=== PATIENT | female | born 1945 | race Caucasian/White ===

== ENCOUNTER → 2018-11-18 07:53 | Outpatient (CLI) | payer OTHER, SELFPAY ==
--- NOTE | 2018-11-18 09:36 | P.PCN_ITS ---
Cardiac Stress Test Report Referral & Results Date Patient Seen: 11/18/18 Requesting provider: Rico Amaya Indication: Dyspnea with exertion Rest ECG: Unremarkable Procedure Note: After both written and verbal informed consent the patient had an IV started by the diagnostic imaging RN and then was hooked up to the treadmill monitoring system. The patient was placed on the treadmill at 1 mile an hour with no elevation and was then injected with the Juliet scan material. The Cardiolite was then immediately administered. The patient spent an additional 2-3 minutes on the treadmill before being returned to the [facility] in the supine position. The patient had a normal response to all infused materials. The patient to become quite dyspneic although oxygen saturation remained normal throughout Impression: Normal response to infuse materials as above. Significant dyspnea with normal oxygen saturation. Please see perfusion imaging report for details regarding possible ischemia Please note: Actual ECG tracings can be found in the PACS system.
--- NOTE | 2018-11-19 15:41 | DI.NM.S_ITS ---
DATE OF SERVICE: 11/18/2018 PROCEDURE: Pharmacological perfusion study. 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 RADIOPHARMACEUTICAL: 26.3 mCi technetium-99m Myoview IV was injected at stress and 24.4 mCi technetium-99m Myoview IV was injected at rest. CARDIAC STRESS: Patient underwent IV Lexiscan perfusion study under the supervision of an attending staff. She walked on low level as well. She developed significant shortness of breath. Her saturation was normal. Baseline EKG reveals to be sinus. During stress, there was significant artifacts. However, no convincing ischemic changes seen. No significant arrhythmias seen. The patient remained hemodynamically stable. RAW DATA: Patient's weight is 228 pounds. Breast shadow was seen. There was increased subdiaphragmatic activity. GATED STUDY: Resting stress LV ejection fraction 81%, and stress LV ejection fraction 84% without any significant wall motion abnormalities. No transient ischemic dilatation. TID ratio is 0.91, which is within normal limits. Resting end-diastolic volume is 117 mL. Lung/heart ratio is 0.30, which is within normal limits. MYOCARDIAL PERFUSION SCAN: Stress supine and resting supine images were compared to each other. Patient doesn't have any prone images. Resting supine images revealed small-sized severely decreased perfusion of basal inferior wall and small-sized mildly decreased perfusion of distal anterior wall and distal anteroseptum. Stress supine images revealed small-sized severely decreased perfusion of basal inferior wall; however, there was moderate sized moderate-to- severely decreased perfusion of [id number] anterior wall involving anterior apex and distal septum as well. CONCLUSION: This is an abnormal myocardial perfusion study consistent with mild distal anterior wall, distal anteroseptal infarction with significant elina- infarct ischemia as well as extension into the anterior apex and mid anterior wall. Patient also has small -sized significant infarction involving the basal inferior wall. The perfusion abnormality and stress left ventricular (LV) ejection fraction appears to be discordant. This LV ejection fraction may not be true. Patient didn't have any prone images. Will inform Dr. Amaya about this abnormal perfusion study. Addendum: Dr. Amaya was informed. LaciViviana - PROGRAM SPECIALIST/lalo/ doc#: [id number]/job#: [id number] dd: 11/19/2018 12:43:00 dt: 11/19/2018 15:07:00 DICTATING MD/COPIES TO: Noelle Guerrier MD COPIES MNE: SOL[place]
== END ==
PROVIDERS: PCP Student in an Organized Health Care Education/Training Program; Visit Provider Student in an Organized Health Care Education/Training Program
DX: I25.89 Other forms of chronic ischemic heart disease (principal); R06.09 Other forms of dyspnea; R07.89 Other chest pain; I25.2 Old myocardial infarction; I10 Essential (primary) hypertension
CPT/HCPCS: 78452; 93016; 93017; 93018; A9502; J2785